=== PATIENT | female | born 1950 | race Two or more races ===

== ENCOUNTER 2017-08-16 08:08 | Outpatient (CLI) | payer OTHER ==
[~2017-08-16 08:08] MED LIST: INVEGA1.5 MG; POLY119PG PO; SYNTHROID112 MCG
== END 2017-08-16 08:14 | disposition home or self-care (01) ==
LOC: RX STUDY 08:08
DX: Z93.3 Colostomy status (principal); K56.2 Volvulus

== ENCOUNTER 2017-12-02 07:59 | Outpatient (CLI) | payer OTHER | END 2017-12-02 14:07 | disposition home or self-care (01) | LOC: TOM 07:59 | DX: R10.9 Unspecified abdominal pain (principal); K43.2 Incisional hernia without obstruction or gangrene ==

== ENCOUNTER 2018-01-08 08:49 | Outpatient (CLI) | payer OTHER | END 2018-01-08 08:54 | disposition home or self-care (01) | LOC: RAD 08:49 | DX: K56.2 Volvulus (principal); Z93.3 Colostomy status; Z86.010 Personal history of colon polyps ==

== ENCOUNTER 2018-02-22 12:06 | Inpatient (IN) | payer OTHER ==
[2018-02-27] MEDS ORDERED: ULTRACET PO (08:03)
[2018-02-28] MEDS ORDERED: AMOX1TAB5 PO (05:21)
== END 2018-02-28 15:31 | disposition home health service (06) | DRG 857 ==
LOC: SURH 12:06
PROVIDERS: Surgery
PROC: BW25Y0Z Computerized Tomography (CT Scan) of Chest, Abdomen and Pelvis using Other Contrast, Unenhanced and Enhanced (ICD-10-PCS; 2018-02-23)
PROC: 0W9F0ZX Drainage of Abdominal Wall, Open Approach, Diagnostic (ICD-10-PCS; principal; 2018-02-24 22:30)
PROC: 2W13X6Z Compression of Abdominal Wall using Pressure Dressing (ICD-10-PCS; 2018-02-25)
DX: T81.4XXA Infection following a procedure, initial encounter (principal); L03.311 Cellulitis of abdominal wall; L02.211 Cutaneous abscess of abdominal wall; Y83.8 Other surgical procedures as the cause of abnormal reaction of the patient, or of later complication, without mention of misadventure at the time of the procedure; Y92.098 Other place in other non-institutional residence as the place of occurrence of the external cause; E03.8 Other specified hypothyroidism; F41.8 Other specified anxiety disorders

== ENCOUNTER 2018-09-20 19:21 | Inpatient (IN) | payer OTHER ==
[~2018-09-20] VITALS: Ht 170.2 cm; Wt 71.7 kg
[~2018-09-20 19:21] MED LIST changes: +AMOX1TAB5 PO; +ULTRACET PO
[2018-09-25] MEDS ORDERED: POLY119PG PO (13:35)
[2018-09-25] MEDS ORDERED: RESTORA CAPSUL1 EACH PO (13:36)
== END 2018-09-25 14:42 | disposition home or self-care (01) | DRG 390 ==
LOC: ER 19:21 → SEC-K 09-21 08:50 → MEDI 09-21 18:09
PROVIDERS: ADMIT Surgery
PROC: BW21ZZZ Computerized Tomography (CT Scan) of Abdomen and Pelvis (ICD-10-PCS; principal; 2018-09-21)
DX: K56.51 Intestinal adhesions [bands], with partial obstruction (principal); E03.8 Other specified hypothyroidism; F41.8 Other specified anxiety disorders; K56.2 Volvulus; R11.2 Nausea with vomiting, unspecified

== ENCOUNTER 2019-07-10 06:00 | Day surgery (SDC) | payer OTHER ==
[~2019-07-10 06:00] MED LIST changes: +RESTORA CAPSUL1 EACH PO
== END 2019-07-10 13:30 | disposition home or self-care (01) ==
LOC: AMB-ENDOS 06:00 → CIR.AMB 12:15 → AMB-ENDOS 13:30
DX: K59.09 Other constipation (principal); K57.30 Diverticulosis of large intestine without perforation or abscess without bleeding

== ENCOUNTER 2019-07-20 08:19 | Outpatient (CLI) | payer OTHER | END 2019-07-20 15:35 | disposition home or self-care (01) | LOC: TOM 08:19 | DX: K43.2 Incisional hernia without obstruction or gangrene (principal) ==

== ENCOUNTER 2020-04-11 08:00 | Inpatient (IN) | payer OTHER ==
[~2020-04-11] VITALS: Ht 170.2 cm; Wt 67.1 kg
[2020-04-11] MEDS ORDERED: SYNTHROID112 MCG PO (09:26)
[2020-04-11] MEDS ORDERED: INVEGA PO (09:28)
[2020-04-11] MEDS ORDERED: PRISTIQ ER100 MG PO (09:28)
[2020-04-11] MEDS ORDERED: INVEGA6 MG PO (09:29)
[2020-04-11] MEDS ORDERED: DICY20TA PO (09:30)
[2020-04-11] MEDS ORDERED: LIPITOR PO (09:30)
[2020-04-11] MEDS ORDERED: ATIVAN PO (09:31)
[2020-04-11] MEDS ORDERED: [UNRECOGNIZED DRUG - OTHER] (09:31)
[2020-04-11] MEDS ORDERED: CENTRUM ADULTS1 EACH PO (09:32)
[2020-04-11] MEDS ORDERED: MIRAL PO (09:32)
[2020-04-11] MEDS ORDERED: PEPCID AC20 MG PO (09:33)
[2020-04-18] MEDS ORDERED: LORAZEPAM1 MG (08:09)
[2020-04-18] MEDS ORDERED: ATORVASTATIN CA10 MG (08:09)
[2020-04-18] MEDS ORDERED: MAXIMUM D3325 MCG (08:09)
[2020-04-18] MEDS ORDERED: PANTOPRAZOLE SO40 MG (08:09)
[2020-04-22] MEDS ORDERED: TYLENOL ARTHRI650 MG PO (04:56)
[2020-04-22] MEDS ORDERED: ULTRAM50 MG PO (04:56)
[2020-04-22] MEDS ORDERED: NEURONTIN300 MG PO (04:56)
== END 2020-04-22 11:36 | disposition home or self-care (01) | DRG 337 ==
LOC: SURH 04-18 05:20 → O/R 04-18 05:20 → SURH 04-18 07:00
PROVIDERS: ADMIT Surgery; ATTEND Surgery
PROC: 0DNW0ZZ Release Peritoneum, Open Approach (ICD-10-PCS; 2020-04-18)
PROC: 0WUF0JZ Supplement Abdominal Wall with Synthetic Substitute, Open Approach (ICD-10-PCS; principal; 2020-04-18 07:00)
DX: K42.0 Umbilical hernia with obstruction, without gangrene (principal); K43.0 Incisional hernia with obstruction, without gangrene; K66.0 Peritoneal adhesions (postprocedural) (postinfection); F41.8 Other specified anxiety disorders; E03.9 Hypothyroidism, unspecified; Z93.3 Colostomy status

== ENCOUNTER 2023-02-19 07:58 | Outpatient (CLI) | payer OTHER ==
[~2023-02-19 07:58] MED LIST changes: +ATIVAN PO; +ATORVASTATIN CA10 MG; +CENTRUM ADULTS1 EACH PO; +DICY20TA PO; +INVEGA PO; +INVEGA6 MG PO; +LIPITOR PO; +LORAZEPAM1 MG; +MAXIMUM D3325 MCG; +MIRAL PO; +NEURONTIN300 MG PO; +PANTOPRAZOLE SO40 MG; +PEPCID AC20 MG PO; +PRISTIQ ER100 MG PO; +SYNTHROID112 MCG PO; +TYLENOL ARTHRI650 MG PO; +ULTRAM50 MG PO; +[UNRECOGNIZED DRUG - OTHER]
== END 2023-02-19 08:03 | disposition home or self-care (01) ==
LOC: RAD 07:58
PROVIDERS: ATTEND Internal Medicine Pulmonary Disease
DX: R04.2 Hemoptysis (principal)

== ENCOUNTER 2023-07-22 11:34 | Outpatient (CLI) | payer OTHER | END 2023-07-22 11:39 | disposition home or self-care (01) | LOC: RAD 11:34 | PROVIDERS: ATTEND Orthopaedic Surgery | DX: M25.561 Pain in right knee (principal) ==

== ENCOUNTER 2023-07-29 08:44 | Outpatient (CLI) | payer OTHER ==
[2023-07-29 09:45] LABS: PH,URINE 7.5 (5.0-8.0); URINE APPEARANCE Clear; URINE BILIRRUBIN Negative (NEGATIVE); URINE COLOR Yellow; URINE GLUCOSE Negative (NEGATIVE); URINE LEUKOCYTE Negative; URINE NITRATE Negative; URINE PROTEIN Negative (NEGATIVE); URINE UROBILINOGEN 0.2 E.U./dl
[2023-07-29 09:49] LABS: URINE RBC 11.3 uL (0.0-20.8)
[2023-07-29 09:56] LABS: HEMOGLOBIN 12.3 g/dL (12.0-15.00); MEAN CELL VOLUME 87.6 fL (80.00-100.00); MEAN CORPUSCULAR HEMOGLOBIN 29.8 pg (27.00-32.0); PLATELET COUNT 181 K/uL (150-450); RED BLOOD COUNT 4.11 M/uL (4.00-6.00); RED CELL DISTRIBUTION WIDTH 14.6 % (11.5-14.5)
[2023-07-29 10:07] LABS: ALBUMIN 4.1 gm/dL (3.4-5.0); BILIRUBIN TOTAL 0.52 mg/dL (0.3-1.2); CALCIUM 9.1 mg/dL (8.5-10.1); CHOL HDL RATIO 1.6 (0-5.0); CREATININE SERUM 0.53 mg/dL (0.55-1.02); GFR 113.72; GLOBULINA 2.8 G/DL (2.4-3.5); MAGNESIUM 2.2 mg/dL (1.8-2.4); POTASSIUM 4.64 mEq/L (3.5-5.1); T4 FREE 1.08 NG/ML (0.76-1.46); TOTAL PROTEIN 6.9 gm/dL (6.4-8.2); TSH 1.86 uIU/mL (0.358-3.74)
[2023-07-29 10:14] LABS: URINE BACTERIA 2.5 uL (0.0-1933); URINE BLOOD TRACE; URINE EPITHELIAL CELLS 0.1 uL (0.0-38.8)
[2023-07-30 14:07] LABS: CALCIUM IONIZED 4.9 mg/dL (4.5-5.6)
== END 2023-07-29 08:45 | disposition home or self-care (01) ==
LOC: LAB 08:44
PROVIDERS: ATTEND Orthopaedic Surgery
DX: E55.9 Vitamin D deficiency, unspecified (principal); M85.9 Disorder of bone density and structure, unspecified; E56.1 Deficiency of vitamin K; E21.3 Hyperparathyroidism, unspecified; E88.89 Other specified metabolic disorders; M81.8 Other osteoporosis without current pathological fracture; R00.2 Palpitations; E11.9 Type 2 diabetes mellitus without complications; I11.9 Hypertensive heart disease without heart failure; E78.2 Mixed hyperlipidemia; E06.3 Autoimmune thyroiditis; Z13.1 Encounter for screening for diabetes mellitus; Z13.228 Encounter for screening for other metabolic disorders; E56.8 Deficiency of other vitamins; E22.1 Hyperprolactinemia; Z68.24 Body mass index [BMI] 24.0-24.9, adult; M81.0 Age-related osteoporosis without current pathological fracture

== ENCOUNTER 2023-07-29 09:30 | Outpatient (CLI) | payer OTHER | END 2023-07-29 09:34 | disposition home or self-care (01) | LOC: RAD 09:30 | PROVIDERS: ATTEND Orthopaedic Surgery | DX: M25.551 Pain in right hip (principal) ==